=== PATIENT | female | born 1985 | race Hispanic/Latino ===

== ENCOUNTER → 2018-01-26 14:21 | Outpatient (CLI) | payer OTHER, MEDICAID, SELFPAY ==
--- NOTE | 2018-01-26 14:22 | DI.MRI.S_ITS ---
PROCEDURE: MR LUMBAR SPINE WO CON INDICATIONS: Sudden onset of low back pain TECHNIQUE: Noncontrast sagittal T1 spin echo and T2 fast echo, sagittal STIR, axial T1 and T2 fast spin echo through the lumbar spine. In cases with scoliosis, additional coronal T2 fast spin echo may be performed. COMPARISON: [facility], , L-SPINE 2-3 VIEWS, 12/22/2017, 12:27. FINDINGS: Image quality: Diagnostic. Spinal Cord: The imaged portions of the spinal cord are normal in size and signal. The conus medullaris is normal in position. Paraspinous Soft Tissues: No paravertebral masses. Image soft tissues of the abdomen and pelvis are grossly unremarkable; however, not adequately evaluated on this exam. The abdominal aorta is normal in course and caliber. Bones: There is a compression deformity involving the L2 vertebral body along the anterior-superior endplate with approximately 25% vertebral height loss. No associated marrow edema is identified to suggest an acute process. No significant retropulsion is identified. The remainder of the intervertebral disc heights are well-maintained. No suspicious osseous lesions are identified. Rightward curvature of the lumbar spine is incidentally noted, centered at approximately the L4 level. No spondylolisthesis is evident on the sagittal images. Lower thoracic levels: No significant degenerative changes of the included lower thoracic levels are present. There is no central canal or neural foraminal narrowing at these levels. L1-L2: A small right lateral disc bulge is present at this level. There is no central canal or neural foraminal narrowing. L2-L3: There appears to be a diffuse disc bulge within the left foraminal region at this location with an associated annular fissure (image 25, series 6). However, no neural impingement is evident. There is no central canal or neuroforaminal stenosis. L3-L4: No significant disc changes are identified. There are mild facet degenerative changes. There is no central canal or neural foraminal stenosis. L4-L5: There is a prominent central disc extrusion at this level, which measures approximately 1.5 cm transverse by 0.9 cm AP by 0.9 cm craniocaudal. This disc extrusion effaces the right and left lateral recesses and exerts prominent mass effect on the exiting bilateral L5 nerve roots. There is mild to moderate facet arthrosis at this level. There is severe central canal stenosis; however, no significant neural foraminal narrowing is evident. L5-S1: There is disc desiccation with mild disc height loss. A small central disc protrusion is identified at this location with an associated annular fissure that is slightly positioned to the right of midline. This disc protrusion does abut the exiting right S1 nerve roots within the lateral recess; however, does not appear to exert significant mass effect. Mild facet arthrosis at this level is present. These findings result in mild central canal stenosis without significant neural foraminal narrowing. IMPRESSION: 1. Chronic L2 compression deformity. No retropulsion. No acute fractures. 2. Moderate-sized central disc extrusion at L4-5 results in severe central canal stenosis and exerts mass effect on the exiting bilateral L5 nerve roots within the lateral recesses. 3. Small central disc protrusion at L5-S1 abuts the right S1 nerve root within the lateral recess; however, does not exert significant mass effect on this nerve root. 4. Mild degenerative changes of the lower lumbar spine are evident involving the discs and facet joints. Dictated by: Salvador Angel M.D. on 01/26/2018 at 14:20 Approved by: Salvador Angel M.D. on 01/26/2018 at 14:32
== END ==
PROVIDERS: PCP Family Medicine; Visit Provider Family Medicine
DX: M51.26 Other intervertebral disc displacement, lumbar region (principal); M51.27 Other intervertebral disc displacement, lumbosacral region; M51.36 Other intervertebral disc degeneration, lumbar region
CPT/HCPCS: 72148; 77080

== ENCOUNTER → 2018-02-19 10:18 | Outpatient (CLI) | payer OTHER, MEDICAID, SELFPAY | PROVIDERS: PCP Family Medicine; Visit Provider Nurse Practitioner Family | DX: Z01.812 Encounter for preprocedural laboratory examination (principal); Z01.818 Encounter for other preprocedural examination | CPT/HCPCS: 87797 ==

== ENCOUNTER → 2018-02-19 10:39 | Outpatient (CLI) | payer OTHER, MEDICAID, SELFPAY ==
[2018-02-19 11:53] LABS: Add Manual Diff / Slide Review NO; Basophils Percent Auto 0.5 % (0-2); Eosinophils Percent Auto 0.6 % (2-4); Hematocrit 34.7 % (36-46); Hemoglobin 12.1 g/dL (12.0-16.0); Lymphocytes Percent Auto 20.4 % (25-40); Mean Corpuscular HGB Conc 34.9 % (30-36); Mean Corpuscular Volume 88.7 fL (80-100); Monocytes Percent Auto 6.6 % (3-14); Neutrophils Absolute Auto 7300 /uL (3000-5900); Neutrophils Percent Auto 71.9 % (50-75); Platelet Count 368 X10^3/uL (150-400); Red Blood Cell Count 3.91 X10^6/uL (4.0-5.2); Red Cell Distribution Width 12.4 % (11.6-14.8); White Blood Cell Count 10.2 X10^3/uL (4.5-11.0)
[2018-02-19 12:01] LABS: Hemoglobin A1C% w Est Avg Glu 5.2 % (4.0-6.0)
[2018-02-19 12:21] LABS: Alanine Aminotransferase 154 IU/L (9-52); Albumin 4.7 g/dL (3.5-5.0); Albumin Globulin Ratio 1.3 (1.0-2.8); Alkaline Phosphatase 125 U/L (38-126); Aspartate Aminotransferase 127 IU/L (14-36); Bilirubin Total 0.5 mg/dL (0.2-1.3); Blood Urea Nitrogen 14 mg/dL (7-17); Calcium 9.3 mg/dL (8.4-10.2); Carbon Dioxide 23 mmol/L (22-32); Chloride 101 mmol/L (98-107); Estimated Glomerular Filt Rate > 60.0 mL/min (>60); Globulin 3.5 g/dL (1.7-4.1); Glucose 97 mg/dL (70-100); HEMOLYSIS < 15 (0-50); Potassium 3.7 mmol/L (3.4-5.1); Sodium 141 mmol/L (137-145); Total Protein 8.2 g/dL (6.3-8.2)
== END ==
PROVIDERS: PCP Family Medicine; Visit Provider Nurse Practitioner Family
DX: Z01.818 Encounter for other preprocedural examination (principal); Z01.812 Encounter for preprocedural laboratory examination
CPT/HCPCS: 36415; 80053; 83036; 85025; 87797

== ENCOUNTER 2019-12-23 19:08 | Emergency (ER) | payer OTHER, MEDICAID, SELFPAY ==
[2019-12-23 19:16] VITALS: BP 179/98; PULSE 90; RESP 20; TEMP 37.7; O2SAT 99
--- NOTE | 2019-12-23 20:09 | ED.GENADULT ---
HPI - General Adult General Chief complaint: Hypertension Stated complaint: HIGH BLOOD PRESSURE Time Seen by Provider: 12/23/19 20:02 Source: patient Mode of arrival: Ambulatory Limitations: no limitations History of Present Illness HPI narrative: Patient comes in with concern of elevated blood pressure. Patient states noticed that sometimes she feels more short of breath when she goes up stairs. She also has noticed that when she does her makeup for has her arms up in the air her fingers will be but which he put some down they are not tingling. She also will sometimes knows this when she wakes up from sleep in her arms are drawn up next to her. When she puts them back down the tingly feeling goes away. Patient did have history of hypertension several years ago, she had been started on blood pressure medications and states that she had a back surgery about a month later she felt so much better she stop the blood pressure medications but did not do this under direction of a physician or recheck her blood pressures afterwards. Besides her back surgery she denies any other medical issues. She tried to call to follow up with her primary care but they have since left the area. She does not use tobacco, no alcohol she had an edible marijuana 2 weeks ago but rarely uses. She was on amlodipine 5 mg once daily and did bring in the prescription bottle with her. She has not had any syncope, no chest pain or pressure. She feels short of breath only when she goes upstairs. She has not had any other cold cough or congestion. No nausea, no vomiting, no issues with bowel movements or urination. She has been checking her blood pressure once daily with a home blood pressure cuff the last for 5 days and have been in the 170 range and 100 systolic range regularly. Related Data Home Medications Medication Instructions Recorded Confirmed cholecalciferol (vitamin D3) #0 12/01/17 02/19/18 [Vitamin D3] Previous Rx's Medication Instructions Recorded atorvastatin 10 mg tablet 10 mg PO DAILY #90 tab 02/12/18 tramadol 50 mg tablet 50 mg PO BID #60 tab 02/12/18 amlodipine 5 mg tablet 5 mg PO QDAY #30 tab 03/22/18 albuterol sulfate 90 mcg/actuation 2 puff INHALATION Q4HP PRN #1 inh 07/23/18 aerosol inhaler amlodipine 5 mg PO DAILY #30 tab 12/23/19 Allergies Allergy/AdvReac Type Severity Reaction Status Date / Time gabapentin AdvReac Intermediate intense Verified 02/19/18 09:56 leg cramps. Review of Systems Review of Systems ROS Unobtainable: All systems reviewed & are unremarkable except as noted in HPI and below Patient History Medical History Asthma (Chronic 1990) Compression fracture (Acute 12/2017) Degenerative disc disease (Acute 12/2017) Hypertension (Chronic Unknown) Hypertriglyceridemia (Chronic Unknown) Psoriasis (Chronic 2007) Surgical History H/O section (Resolved 2004) Family History (Updated 01/01/18 @ 00:00 by Conversion Provider) Brother Age: 32 Hypertension Father Age: 56 Hypertension Mother Age: 64 Hypertension Diabetes mellitus Sister Age: 26 Hypertension Sister Age: 39 Diabetes mellitus Sister Age: 42 Diabetes mellitus Social History Smoking Status: Never smoker Smoking Status: Never smoker alcohol intake frequency: a few times a month Substance Use Type: does not use Exam Narrative Exam Narrative: GENERAL: Alert and oriented x three, well-nourished, well-appearing female in no acute distress. HEENT: Head normocephalic, atraumatic, EOMI, pupils reactive, face symmetric, moist mucous membranes NECK: Supple, full range of motion CARDIOVASCULAR: Regular rate and rhythm without murmurs, rubs or gallops. RESPIRATORY: Breath sounds equal bilaterally, no wheezes rales or rhonchi. ABDOMEN: Soft, nontender. Normoactive bowel sounds all 4 quadrants. No guarding or rebound, rigidity, no mass : No CVA tenderness EXTREMITIES: Normal range of motion, no clubbing or edema. Neurovascularly intact NEUROLOGICAL: Cranial nerves II through XII grossly intact. Moving all extremities SKIN: Warm, dry, no petechiae, no rashes or lesions. Initial Vital Signs Initial Vital Signs: Vital Signs Temperature 100 F H 12/23/19 19:16 Pulse Rate 90 12/23/19 19:16 Respiratory Rate 20 12/23/19 19:16 Blood Pressure 179/98 H 12/23/19 19:16 Pulse Oximetry 99 12/23/19 19:16 Course Orders Ordered: ED Orders 12/23/19 19:32 EKG-12 Lead Stat 12/23/19 19:52 CMP [Comprehensive Metabolic Panel] Stat Complete Blood Count AUTO DIFF Stat Vital Signs Vital signs: Vital Signs - 8 hr 12/23/19 19:16 12/23/19 20:49 Temperature 100 F H Pulse Rate 90 82 Respiratory Rate 20 16 Blood Pressure 179/98 H Blood Pressure [Right Arm] 168/92 H Pulse Oximetry 99 98 Medical Decision Making Lab Data Result diagrams: 12/23/19 19:52 12/23/19 19:52 Labs: Lab Results 12/23/19 12/23/19 Range/Units 19:52 19:52 WBC 12.7 H (4.5-11.0) X10^3/uL RBC 4.12 (4.0-5.2) X10^6/uL Hgb 12.6 (12.0-16.0) g/dL Hct 36.6 (36-46) % MCV 88.8 (80-100) fL MCH 30.6 (26-34) PG MCHC 34.5 (30-36) % RDW 12.7 (11.6-14.8) % Plt Count 325 (150-400) X10^3/uL Neut % (Auto) 70.6 (50-75) % Lymph % (Auto) 20.9 L (25-40) % [place] % (Auto) 5.4 (3-14) % Eos % (Auto) 2.4 (2-4) % Baso % (Auto) 0.7 (0-2) % Neut # (Auto) 8900 H (7916-5542) /uL Lymph # (Auto) 2700 (1969-8597) /uL Baxter # (Auto) 700 (0-900) /uL Eos # (Auto) 300 (0-450) /uL Baso # (Auto) 100 (0-100) /uL Sodium 138 (137-145) mmol/L Potassium 3.8 (3.4-5.1) mmol/L Chloride 105 (98-107) mmol/L Carbon Dioxide 23 (22-32) mmol/L BUN 19 H (7-17) mg/dL Creatinine 0.56 (0.52-1.04) mg/dL Estimated GFR > 60.0 (>60) mL/min BUN/Creatinine Ratio 33.9 H (6-22) Glucose 106 H (70-100) mg/dL Calcium 9.4 (8.4-10.2) mg/dL Total Bilirubin 0.3 (0.2-1.3) mg/dL AST 36 (14-36) IU/L ALT 24 (<35) IU/L Alkaline Phosphatase 84 (38-126) U/L Total Protein 8.1 (6.3-8.2) g/dL Albumin 4.4 (3.5-5.0) g/dL Globulin 3.7 (1.7-4.1) g/dL Albumin/Globulin Ratio 1.2 (1.0-2.8) Point of Care Testing Test Results Negative Urine Dip Bedside Urine Glucose Negative Bedside Urine Bilirubin - Negative Bedside Urine Ketone - Negative Urine Specific [place] 1.020 Bedside Urine Occult Blood - Negative Bedside Urine pH 6.5 Bedside Urine Protein +/- 15 Bedside Urine Urobilinogen - Negative Bedside Urine Nitrite - Negative Bedside Urine Leukocytes - Negative Esterase Point of care testing: Point of Care Testing Test Results Negative Urine Dip Bedside Urine Glucose Negative Bedside Urine Bilirubin - Negative Bedside Urine Ketone - Negative Urine Specific [place] 1.020 Bedside Urine Occult Blood - Negative Bedside Urine pH 6.5 Bedside Urine Protein +/- 15 Bedside Urine Urobilinogen - Negative Bedside Urine Nitrite - Negative Bedside Urine Leukocytes - Negative Esterase ECG Data Attestation: I personally reviewed and interpreted this ECG as follows: Prior ECG tracings: not available for review Interpretation: Sinus rhythm with sinus arrhythmia rate of 71 P are 138 QRS 84 and QTC of 421. No ST elevation or depression noted. No priors available. [facility] Narrative Medical decision making narrative: Patient comes in with elevated blood pressure in the department. She has been monitoring at home and has been elevated. She has a history of hypertension stopped her medications without having her blood pressure checked prior to or afterwards and has been off them since so likely she does need to be restarted on her blood pressure medication. Patient brought the old prescription bottle with her and was amlodipine 5 mg tablets. Plan to refill her prescription for 30 days and have her follow up with primary care to reestablish so that she can make sure all of her other regular screening testing is taking care of. Discharge Plan Departure Patient Disposition: Home Clinical Impression: Hypertension Discharge Date/Time: 12/23/19 21:17 Instructions: DI for High Blood Pressure Activity Restrictions/Additional Instructions: Follow-up with your general primary care service to reestablish care. Take 1 tablet daily of blood pressure medication. This medication could make you feel lightheaded so I would not drive or perform any hazardous activities until you see how your respond to the medication. Your prescription was sent to [facility] in [place]. Return to the ER for passing out, new chest pain, shortness of breath, persistent vomiting, new or rapidly worsening swelling in her extremities or other new or concerning symptoms. Prescriptions: New amlodipine 5 mg tablet 5 mg PO DAILY Qty: 30 RF: 0 No Action atorvastatin 10 mg tablet 10 mg PO DAILY Qty: 90 RF: 0 tramadol 50 mg tablet 50 mg PO BID Qty: 60 RF: 0 cholecalciferol (vitamin D3) [Vitamin D3] 2,000 UNIT tablet Qty: 0 RF: 0 amlodipine [Norvasc] 5 mg tablet 5 mg PO QDAY Qty: 30 RF: 3 albuterol sulfate [Ventolin HFA] 90 mcg/actuation HFA aerosol inhaler 2 puff INHALATION Q4HP PRN (Reason: shortness of breath or wheezing) Qty: 1 RF: 0 Referrals: Linda Calvin DO [Primary Care Provider] -
[2019-12-23 20:13] LABS: Add Manual Diff / Slide Review NO; Basophils Absolute Auto 100 /uL (0-100); Basophils Percent Auto 0.7 % (0-2); Eosinophils Absolute Auto 300 /uL (0-450); Eosinophils Percent Auto 2.4 % (2-4); Hematocrit 36.6 % (36-46); Hemoglobin 12.6 g/dL (12.0-16.0); Lymphocytes Absolute Auto 2700 /uL (1100-4500); Lymphocytes Percent Auto 20.9 % (25-40); Mean Corpuscular HGB Conc 34.5 % (30-36); Mean Corpuscular Hemoglobin 30.6 PG (26-34); Mean Corpuscular Volume 88.8 fL (80-100); Monocytes Absolute Auto 700 /uL (0-900); Monocytes Percent Auto 5.4 % (3-14); Neutrophils Absolute Auto 8900 /uL (1500-7000); Neutrophils Percent Auto 70.6 % (50-75); Platelet Count 325 X10^3/uL (150-400); Red Blood Cell Count 4.12 X10^6/uL (4.0-5.2); Red Cell Distribution Width 12.7 % (11.6-14.8); White Blood Cell Count 12.7 X10^3/uL (4.5-11.0)
[2019-12-23 20:25] LABS: Alanine Aminotransferase 24 IU/L (<35); Albumin 4.4 g/dL (3.5-5.0); Albumin Globulin Ratio 1.2 (1.0-2.8); Alkaline Phosphatase 84 U/L (38-126); Aspartate Aminotransferase 36 IU/L (14-36); BUN Creatinine Ratio 33.9 (6-22); Bilirubin Total 0.3 mg/dL (0.2-1.3); Blood Urea Nitrogen 19 mg/dL (7-17); Calcium 9.4 mg/dL (8.4-10.2); Carbon Dioxide 23 mmol/L (22-32); Chloride 105 mmol/L (98-107); Estimated Glomerular Filt Rate > 60.0 mL/min (>60); Globulin 3.7 g/dL (1.7-4.1); Glucose 106 mg/dL (70-100); HEMOLYSIS 19 (0-50); Potassium 3.8 mmol/L (3.4-5.1); Sodium 138 mmol/L (137-145); Total Protein 8.1 g/dL (6.3-8.2)
[2019-12-23 20:49] VITALS: BP 168/92; PULSE 82; RESP 16; O2SAT 98
== END 2019-12-23 21:17 | disposition home or self-care (01) ==
PROVIDERS: Emergency Provider Emergency Medicine; PCP Family Medicine
DX: I10 Essential (primary) hypertension (principal); R06.02 Shortness of breath
CPT/HCPCS: 36415; 80053; 81003; 81025; 85025; 93005; 99284

== ENCOUNTER → 2020-09-24 15:44 | Outpatient (CLI) | payer OTHER, MEDICAID, SELFPAY | PROVIDERS: Visit Provider Physician Assistant | DX: N34.3 Urethral syndrome, unspecified (principal) | CPT/HCPCS: 87077; 87086; 87186 ==

== ENCOUNTER → 2020-11-26 09:00 | Outpatient (CLI) | payer OTHER, MEDICAID, SELFPAY ==
[2020-11-26 11:46] LABS: Hematocrit 38.8 % (36-46); Hemoglobin 13.4 g/dL (12.0-16.0); Mean Corpuscular HGB Conc 34.7 % (30-36); Mean Corpuscular Hemoglobin 31.2 PG (26-34); Platelet Count 321 X10^3/uL (150-400); Red Blood Cell Count 4.31 X10^6/uL (4.0-5.2); White Blood Cell Count 10.7 X10^3/uL (4.5-11.0)
[2020-11-26 12:18] LABS: Alanine Aminotransferase 41 IU/L (<35); Albumin 4.5 g/dL (3.5-5.0); Albumin Globulin Ratio 1.3 (1.0-2.8); Alkaline Phosphatase 88 U/L (38-126); Aspartate Aminotransferase 43 IU/L (14-36); BUN Creatinine Ratio 30.9 (6-22); Bilirubin Total 0.5 mg/dL (0.2-1.3); Blood Urea Nitrogen 17 mg/dL (7-17); Calcium 9.5 mg/dL (8.4-10.2); Carbon Dioxide 26 mmol/L (22-32); Chloride 101 mmol/L (98-107); Cholesterol 209 mg/dL (140-199); Estimated Glomerular Filt Rate > 60.0 mL/min (>60); Globulin 3.5 g/dL (1.7-4.1); Glucose 105 mg/dL (70-100); HDL Cholesterol 41 mg/dL (40-60); HEMOLYSIS < 15 (0-50); Potassium 4.2 mmol/L (3.4-5.1); Sodium 135 mmol/L (137-145); Triglycerides 415 mg/dL (35-150)
[2020-11-26 12:31] LABS: Free T3, Triiodothyronine Free 3.29 pg/mL (2.77-5.27); Free T4, Direct Thyroxine 0.91 ng/dL (0.78-2.19)
[2020-11-26 12:44] LABS: Thyroid Stimulating Hormone 2.82 uIU/mL (0.47-4.68)
== END ==
PROVIDERS: PCP Nurse Practitioner; Referring Provider Nurse Practitioner; Visit Provider Nurse Practitioner
DX: Z00.00 Encounter for general adult medical examination without abnormal findings (principal); E78.5 Hyperlipidemia, unspecified; I10 Essential (primary) hypertension; K76.0 Fatty (change of) liver, not elsewhere classified; R63.5 Abnormal weight gain
CPT/HCPCS: 36415; 80053; 80061; 84439; 84443; 84481; 85027